=== PATIENT | male | born 1955 | race Caucasian/White ===

== ENCOUNTER → 2017-02-16 | Outpatient (CLI) | payer OTHER ==
--- NOTE | 2017-02-16 13:47 | RAD ---
HISTORY: Right shoulder pain Study: 3 views of the right shoulder. Comparison: None Findings: No acute fractures or dislocations. The glenohumeral articulation is normal in its appearance. No g ross soft tissue abnormalities. There is 1.6 cm of separation of the acromioclavicular joint. IMPRESSION: 1. Type 2 acromioclavicular dislocation. Reported By:
== END | disposition home or self-care (01) | DRG 556 ==
LOC: RAD 12:46
PROVIDERS: ATTEND Student in an Organized Health Care Education/Training Program
DX: M25.511 Pain in right shoulder (principal); S43.101A Unspecified dislocation of right acromioclavicular joint, initial encounter
CPT/HCPCS: 73030

== ENCOUNTER → 2017-06-16 | Outpatient (CLI) | payer OTHER ==
--- NOTE | 2017-06-19 10:28 | CT ---
HISTORY: Compression fracture Study: CT lumbar spine without contrast Comparison: None Technique: Multiple axial images of the lumbar spine without the administration of IV contrast. Sag ittal and coronal reformats were performed and reviewed. Dose reduction techniques including Automat ed Exposure Control (AEC) and adjustment of mA and kV were utilized. Findings: Lumbar alignment is within normal limits. There is kyphosis at the lower thoracic spine. There is a chronic compression fracture of T12 post vertebroplasty with approximately 25% height loss. There is an additional compression fracture of T11, favored to be chronic, with approximately 50% anterior wed ging. There is a small amount of interosseous gas noted along the superior endplate of this fracture . No significant retropulsion. The remaining vertebral body heights are preserved. There is mild lumb ar spondylosis present with preservation of the disc spaces. There are moderate-sized broad-based dis c bulges at L3-L4, L4-5 and L5-S1 with calcification far left lateral disc at L5-S1, likely resulting in moderate foraminal stenosis. No significant facet joint arthropathy. The surrounding paraspinous soft tissues are normal in their noncontrasted appearance. There is a partially visualized spinal st imulator device on the left extending into mid thoracic spine region. IMPRESSION: 1. Chronic compression deformities at T11 and T12 as described with previous vertebroplasty at T12. 2. Moderate-sized disc bulges at L3-L4, L4-5 and L5-S1 with suspected moderate left foraminal stenosi s at L5-S1. Reported By:
== END | disposition home or self-care (01) | DRG 544 ==
LOC: RAD 10:40
PROVIDERS: ATTEND Nurse Practitioner
DX: M48.56XA Collapsed vertebra, not elsewhere classified, lumbar region, initial encounter for fracture (principal); M51.27 Other intervertebral disc displacement, lumbosacral region
CPT/HCPCS: 72131